=== PATIENT | female | born 1975 | race Caucasian/White ===

== ENCOUNTER 2024-06-03 10:19 | Emergency (ER) | payer OTHER, SELFPAY ==
--- NOTE | 2024-06-03 10:21 | ED.URI ---
HPI - URI/Sore Throat General Chief Complaint: Upper Respiratory Infection Stated Complaint: headache / vomiting / cough / congestion Time Seen by Provider: 06/03/24 10:21 Source: patient Mode of arrival: ambulatory Limitations: no limitations History of Present Illness HPI Narrative: Anne-Marie is a 49-year-old female patient presenting to the clinic today with complaints of cough, nasal congestion, headache, nausea, and vomiting x2 days. She denies any fever, chills, or body aches. Took ibuprofen yesterday and that helped the headache. Has vomited 5 times. History of migraine headaches. MD elicited complaint: cough, rhinorrhea, nasal congestion and other (Headache) Related Data Allergies Allergy/AdvReac Type Severity Reaction Status Date / Time No Known Allergies Allergy Verified 06/03/24 10:33 Review of Systems Review of Systems: Pertinent positives per HPI. Patient denies any fever, chills, rash, visual changes, dizziness, shortness of breath, chest pain, palpitations, diarrhea, constipation, abdominal pain, or any urinary issues. PMFSH Comments At the time of my signature, I reviewed and agree with the nursing past medical, surgical, social, and family history. There is no relevant family history pertinent to the patient complaint. Exam Narrative: General: Well-developed, well nourished, in no apparent distress Head: Normocephalic, atraumatic Eyes: Pupils equally round and reactive to light bilaterally, EOM intact, sclera and conjunctive clear, no discharge, lids normal Ears: TMs intact and clear, ear canals clear, no drainage, grossly hearing normal. Nose: Nares patent, clear nasal discharge, no inflammation, no sinus tenderness. Mouth: Oral pharynx without lesions or masses, good dentition, MMM. Neck: Supple, trachea midline, no enlargement of anterior or posterior cervical nodes, no thyroid masses or goiter palpable. Cardio: Regular rate and rhythm, s1 and s2 normal, no murmur appreciated. Resp: Clear to auscultation bilaterally, no rhonchi, rales, wheezing or rubs Course Course Emergency Course: Portions of this record may have been created with voice recognition software. Level of Care: Express Care Visit Vital Signs Vital signs: Vital signs reviewed MDM - URI/Sore Throat MDM Narrative Medical decision making narrative: At the time of visit patient is resting comfortably on the exam table. Patient appears to be nontoxic. Labs: COVID and influenza testing was performed and negative in the clinic today. Plan: I suspect patient has URI, nausea/vomiting/viral syndrome. Will send in prescription for Zofran for nausea/vomiting. Supportive measures were discussed with the patient and they voiced understanding discharge instructions and agrees to treatment plan. Return precautions reviewed Differential Diagnosis Differential diagnosis: Likely upper respiratory infection, otitis media, sinusitis, viral infection, bronchitis, influenza, pharyngitis and other (COVID) Discharge Plan Discharge Clinical Impression: Acute viral syndrome Upper respiratory infection Qualifiers: URI type: unspecified URI Qualified Code(s): J06.9 - Acute upper respiratory infection, unspecified Headache Qualifiers: Headache type: unspecified Headache chronicity pattern: acute headache Intractability: not intractable Qualified Code(s): R51.9 - Headache, unspecified Nausea & vomiting Qualifiers: Vomiting type: unspecified Qualified Code(s): R11.2 - Nausea with vomiting, unspecified Patient Disposition: Home, Self-Care Condition: Stable Instructions: Antibiotic Form, Upper Respiratory Infection (ED), Acute Nausea and Vomiting (ED), Viral Syndrome (ED) Additional Instructions: COVID and influenza testing was negative in the clinic today. No sign of bacterial infection in the clinic today Take prescription medications only as prescribed-ondansetron for nausea and vomiting May take DayQuil/NyQuil for cold/flu symptoms Increase fluids and stay well hydrated Tylenol/motrin for pain/fever Flonase and OTC antihistamines as directed Vicks vapor rub to open sinuses Sinus rinses for congestion Cepacol spray, cough drops, throat lozenges, warm tea with honey/lemon, gargle salt water to soothe throat BRAT diet for diarrhea Clear liquids x 24 hours then advance as tolerated for nausea/vomiting Go to the ED if you develop a worsening in your condition- high fever not controlled by Tylenol or Motrin, dehydration, weakness, lethargy, shortness of breath, or chest pain. Follow up with your PCP in 3-5 days if symptoms persist. Patient Language: Kinyarwanda Prescriptions: New ondansetron 4 mg tablet,disintegrating 4 mg PO Q6H PRN (Reason: nausea and vomiting) 3 Days Qty: 12 0RF Follow-up/Referrals: Stew,Belkys Mclaughlin PA-C [Primary Care Provider] - Time of Disposition: 11:07 Quality NIHSS Nursing Documentation ED NIHSS nursing documentation: reviewed/agree
[2024-06-03 10:30] VITALS: BP 124/77; PULSE 94; RESP 18; TEMP 36.6; O2SAT 100
[2024-06-03 10:59] LABS: EDCOVIDSCREEN Negative (Negative); EDINFLUASCREEN Negative (Negative); EDINFLUBSCREEN Negative (Negative)
--- OUTSIDE RECORDS SUMMARY | 2024-06-10 13:43 | XMS_ITS | Continuity of Care Document ---
Author Name [facility] Organization [facility] Care Team Providers Care Kindergarten Aide Name Role Phone [facility] Unavailable Unavailable Problems Combined list of problems from Department of Defense and Veterans Affairs facilities. It does not include entries that were removed or entered in error. Problem Status Onset Date Problem Type Date of Resolution Comments Source Macules And Papules Inactive Condition D oD fatigue Active Condition DoD allergic rhinitis Active Condition DoD visit for: screening exam lipoid disorders Inactive Condition DoD common cold Inactive Condition DoD TMJ pain Active Condition DoD anxiety Active Condition DoD Administrative Evaluation Services Active Condition DoD breast lump or mass right Active Condition DoD dermatitis Inactive Condition DoD feeling tired or poorly Active Condition DoD upper respiratory infection acute Active Condition DoD dermatophytosis nails onychomycosis Active Condition DoD Mammogram Screening For High-risk Patient Active Condition DoD visit for: screening exam for malignant neoplasm cervix Inactive Condition DoD routine gynecological exam with cervical pap smear Inactive Condition DoD acute bronchitis Inactive Condition Rev iewed options with pt. Will treat with azithromycin as below, continue sx rx as desired. f/u prn. DoD visit for: issue repeat prescription Active Condition Rx enter ed as below for citalopram 20mg daily for migraine prophylaxis. f/u prn. 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 Obtain bite guard from Dentist. If sx become more frequent or intense will consider further tx. DoD upper respiratory infection Inactive Condition continue conservative care, f/u if sx worsen or do not improve DoD Pelvic Exam (Internal) Active Condition DENIES HX ABNL PAPS. LAST THREE PAPS IN RECORD WNL. DoD visit for: screening exam malignant neoplasm breast Inactive Condition DoD Patient Counseling: Inactive Condition see above DoD breast pain Active Condition DoD limb pain Inactive Condition DoD pharyngitis Inactive Condition throat cx DoD chest pain lasting continuously for several weeks or more Active Condition doing very well . Will re-evaluate at 6 months, sooner prn DoD depression Active Condition discussed at length treatment options and medication s/ef/u in 1 month DoD Migraine, unspecified, without mention of intractable migraine without mention of status migrainosus Active Condition ALEX WATTERS Age:32 OUTPAT PRE-ACTIVE ORDERS 1 RX CITALOPRAM HBR--PO 20MG TAB~TD RF0 #30 DS30 on 05 Apr 2007@0909 {rd,denies SI /HI} ~HCP Sig.Needed~PRE-A CTIVE . . . . . . . . sGUSTIM [id number] APPOINTMENTS FOR ABBEY WATTERS TYPE/DURCLINIC/D IV PROVIDER DATE/TIME DTL CODES STATUS ======PRIMARY CARE Willie/RAYO RENE [id number]@[facility] EST/20 PENDINGArrive 15 min early BPAPS WEA DoD Allergies, Adverse Reactions, Alerts Combined list of allergies from Department of Defense and Veterans Affairs facilities. It does not include entries that were removed or entered in error. Substance Category Reaction Severity Reaction type Status Date Reported Comments Source No Known Allergies Drug allergy (disorder) active 8 [facility] NO KNOWN ALLERGIES Propensity to adverse reactions to drug Active Ambulatory Pharmacy Immunizations Combined list of available immunizations from the Department of Defense and Veterans Affairs facilities. Immunization Series Date Given Administered By Site Reaction Lot Number CVX Code Drug School Guard Status Comments Source tetanus and diphtheria toxoids, adsorbed, preservative free, for adult use (2 Lf of tetanus toxoid and 2 Lf of diphtheria toxoid) 1 2022 Unknown, Provider [id number] Sanofi Pasteur ([facility]) complet ed tetanus and diphtheri a toxoids, adsorbed, preservat lucille free, for adult use (2 Lf of tetanus toxoid and 2 Lf of diphtheri a toxoid) DoD influenza, seasonal, injectable-pf [facility]2 1P 140 Novartis Pharmaceutica ls complet ed influenza , seasonal, injectabl e-pf 05/29/13 Given Ambulat ory Pharmac y influenza, seasonal, injectable-pf 2012 1342 1P 140 Novartis Pharmaceutica ls complet ed influenza , seasonal, injectabl e-pf 05/29/13 Given Ambulat ory Pharmac y Influenza, seasonal, injectable, preservative free 5 2012 Unknown, Provider 1342 1P 140 Novartis Bobex.comtica l Maxime. (NOV) complet ed Influenza , seasonal, injectabl e, preservat lucille free DoD influenza virus vaccine, live 2011 [id number] Medimmune Inc comple t ed influenza virus vaccine, live 03/15/12 Given Ambulat ory Pharmac y influenza virus vaccine, live 2011 [id number] Medimmune Inc [facility] t ed influenza virus vaccine, live 03/15/12 Given Ambulat ory Pharmac y influenza virus vaccine, live, attenuated, for intranasal use 4 2011 Unknown, Provider [id number] [facility] (MED) complet ed influenza virus vaccine, live, attenuate d, for intranasa l use DoD tetanus, diphtheria, acellular pertu is 2011 zzRig Arm [id number] 115 sanofi pasteur complet ed tetanus, diphtheri a, acellular pertussis 11/13/11 Given Ambulat ory Pharmac y tetanus, diphtheria, acellular pertu is 2011 [id number] sanofi pasteur complet ed tetanus, diphtheri a, acellular pertussis 11/13/11 Given Ambulat ory Pharmac y tetanus toxoid, reduced diphtheria toxoid, and acellular pertu is vaccine, adsorbed 1 2011 Unknown, Provider [id number] 115 Sanofi Pasteur ([facility]) complet ed tetanus toxoid, reduced diphtheri a toxoid, and acellular pertussis vaccine, adsorbed DoD influenza virus vaccine, live 2010 [id number] 111 Medimmune Inc comple t ed influenza virus vaccine, live 04/07/11 Given Ambulat ory Pharmac y influenza virus vaccine, live, attenuated, for intranasal use 3 2010 Unknown, Provider [id number] 111 MedImmune, Inc. (MED) complet ed influenza virus vaccine, live, attenuate d, for intranasa l use DoD Novel Influenza-H1N 1-09,live virus,nasal 2008 [id number] 125 Medimmune Inc comple t ed Novel Influenza -J7F0-10, live virus,vadim al 04/01/09 Given Ambulat ory Pharmac y Novel Influenza-H1N 1-09,live virus,nasal 2008 [id number] 125 Medimmune Inc comple t ed Novel Influenza -P7S2-71, live virus,vadim al 04/01/09 Given Ambulat ory Pharmac y Novel Influenza-H1N 1-09, live virus for nasal administratio n 1 2008 Unknown, Provider [id number] 125 MedImmune, Inc. (MED) complet ed Novel Influenza -E2T3-20, live virus for nasal administr ation DoD influenza virus vaccine, live 2008 [id number] 111 Medimmune Inc comple t ed influenza virus vaccine, live 02/26/09 Given Ambulat ory Pharmac y influenza virus vaccine, live 2008 [id number] 111 Medimmune Inc comple t ed influenza virus vaccine, live 02/26/09 Given Ambulat ory Pharmac y influenza virus vaccine, live, attenuated, for intranasal use 1 2008 Unknown, Provider [id number] 111 MedImmune, Inc. (MED) complet ed influenza virus vaccine, live, attenuate d, for intranasa l use DoD influenza virus vaccine, whole virus 2002 zzLef t Arm [id number] 16 sanofi pasteur complet ed influenza virus vaccine, whole virus 05/08/03 Given Ambulat ory Pharmac y influenza virus vaccine, whole virus 2002 [id number] 16 sanofi pasteur complet ed influenza virus vaccine, whole virus 05/08/03 Given Ambulat ory Pharmac y influenza virus vaccine, whole virus 1 2002 Unknown, Provider [id number] 16 Maneofi Pasteur ([facility]) complet ed influenza virus vaccine, whole virus DoD Vital Signs Combined list of inpatient and outpatient Vital Signs from Department of Defense and Veterans Affairs, ranging from 12 months to all on record, depending upon the facility. Vital Sign Value Date Comments Source No data available for this section Ambulatory Pharmacy Encounters Combined list of: 1) Encounters from Department of Veterans Affairs facilities going back up to thelast 18 months. 2) Encounters from the Department of Defense facilities going back up to 280 months. Location Location Details Encounter Type Encounter Number Reason For Visit Attending Provider ADM Date DC Date Status Disposition Source [facility] OUTPATIENT [id number] F/U ON HEAD CT RESULTS REGGIE SANTIAGO 11/20 Released w/o Limitations [facility]) OUTPATIENT [id number] STRESS PROBLEM S-CHEST PAIN-AD VISED TO GO TO ER-[facility] DNT REGGIE SANTIAGO 07/15 Released w/o Limitations [facility] OUTPATIENT [id number] 'F/U STRESS REGGIE SANTIAGO 08/15 Released w/o Limitations [facility] OUTPATIENT [id number] SORE THROAT REGGIE SANTIAGO 10/29 Released w/o Limitations [facility]) OUTPATIENT [id number] F/U MEDS SKY BULLARD 11/14 Released w/o Limitations [facility]) OUTPATIENT [id number] JACOBO LEMUS 01/01 Released w/o Limitations [facility] TELE CONSULT [id number] SYMPTOM S RUI NORTH 06/03 [employer]) OUTPATIENT [id number] FU ON TMJ REGGIE SANTIAGO S 06/19 Released w/o Limitations [facility]) OUTPATIENT [id number] MED REFILL RUI [place]TH 11/06 Released w/o Limitations [facility] [employer] ([facility] [place] sherine Practice Non-GME FHI1) TELE CONSULT [id number] Patient needs medicat ion refill, has never had appt with pcm, New to [facility] ASYDA ABREU 02/26 [facility] [employer] ([facility] [place]F amily Practic e Non-GME FHI1) [facility] [employer] ([facility] [place]Fam sherine Practice Non-GME FHI2) OUTPATIENT [id number] cough throat pain CARLY MONTES 03/19 Released w/o Limitations [employer] ([facility] [place]F amily Practic e Non-GME FHI2) [facility] [employer] ([facility] [place]Medical Writer ecology) OUTPATIENT [id number] Annual pap FARTUN OLEARY R 03/26 Released w/o Limitations [employer] ([facility] [place]G ynecolo gy) [facility] [employer] ([facility] [place]Medical Writer ecology) OUTPATIENT [id number] annual pap JOSE MORTON 02/21 Released w/o Limitations [employer] ([facility] [place]G ynecolo gy) [facility] [employer] ([facility] [place] sherine Practice Non-GME FHI1) TELE CONSULT [id number] needs appt- VELVET Rushing 02/25 [facility] [employer] ([facility] [place]F amily Practic e Non-GME FHI1) [address] [place] [address] [employer] ([facility] [place]Fam sherine Practice Non-GME FHI1) OUTPATIENT [id number] lost half of big toenail YOANDY SMALL 02/28 Released w/o Limitations [employer] ([facility] [place]F amily Practic e Non-GME FHI1) [address] [place] [address] [facility] [employer] [facility]Fam sherine Practice Non-GME FHI1) TELE CONSULT [id number] refill iggy - VELVET Rushing 04/[address] [place] [address] [employer] [facility]F amily Practic e Non-GME FHI1) [address] [place] [address] [employer] [facility]Fam sherine Practice Non-GME FHI1) [facility]PAT[facility] [id number] [facility] 04/20 Released w/o Limitations [address] [place] [address] Group [employer] [facility]F amily Practic e Non-GME FHI1) [address] [place] [address] Group [employer] [facility]Fam sherine Practice Non-GME FHI1) OUTPATIENT [id number] POSS BRONCHI TIS [id number] # [id number] WK# YOANDY SMALL 05/18 Released w/o Limitations [address] [place], [place] [address]B [facility]F amily Practic e Non-GME FHI1) [address] [place] [address] [employer] [facility]Fam sherine Practice Non-GME FHI1) TELE CONSULT [id number] request appt - SY Torres 06/[address] [place] [address] [employer] [facility]F amily Practic e Non-GME FHI1) [address] [place] [address] [employer] [facility]Fam sherine Practice Non-GME FHI1) OUTPATIENT [id number] poss removal r YOANDY Ramos 06/09 Released w/o Limitations [address] [place] [address] [employer] [facility]F amily Practic e Non-GME FHI1) [address] [place], [place] [address]B [facility]Medical Writer ecology) OUTPATIENT [id number] annual wwe JEAN-PAUL GARZA S 07/20 Released w/o Limitations [address] [place] [address] [employer] [facility]G ynecolo gy) [address] [place] [address] [employer] [facility]co tt [facility] Fam Res Tm Red) OUTPATIENT [id number] [facility] [id number] YOANDY SMALL 09/04 Released w/o Limitations [address] [place] [address] [employer] [facility]S cott [facility] Fam Res Tm Red) [facility] Medical [facility](87 [facility]) OUTPATIENT [id number] rashes arms & legs JULIO, JUNI 12/28 Released w/o Limitations [facility](8 7 Urgent Care Clinic) [facility] Medical Group(87 Family Prac Team 1) OUTPATIENT [id number] lump on breast BRANNON RAE 01/16 Released w/o Limitations [employer] [facility] [employer](8 7 Family Prac Team 1) [facility] Medical Group(87 Family Prac Team 1) TELE CONSULT [id number] bisi franco for ultraso und / Jiménez BRANNON RAE A 01/17 [facility](8 7 Family Prac Team 1) [facility] Medical Group(87 Family Prac Team 1) OUTPATIENT [id number] NIKKO Rothman 06/11 Released w/o Limitations [facility] Medical Group(8 7 Family Prac Team 1) [facility] Medical Group(87 Family Prac Team 1) OUTPATIENT [id number] jaw pain DEVON RICHARD 08/20 Released w/o Limitations [facility] Medical Group(8 7 Family Prac Team 1) [facility] Medical Group(87 [facility] 4) OUTPATIENT [id number] cold symptom s DEVON RICHARD 05/16 Released w/o Limitations [facility] Medical Group(8 7 [facility] 4) [facility] Medical Group(87 [facility] Team Blue) OUTPATIENT [id number] migrain e medicat ion F.U JULIO, JUNI 10/16 Released w/o Limitations [facility] Medical Group(8 7 [facility] Team Blue) [facility] Medical Group(87 Contract Medical Writer) OUTPATIENT [id number] annual pap JUAN JOSÉ COSME A 04/13 Released w/o Limitations [facility] Medical Group(8 7 Contrac t Medical Writer) [facility] Group(87 [facility] Team White) TELE CONSULT [id number] Notes Entered by: Martin ALBERT 09 Oct 2011 1521 ------- ------- ------- ------- -- INEZ German 10/08 [facility] Medical Group(8 7 [facility] Team White) [place] [address]([facility] Team, [employer]) OUTPATIENT [id number] C/O MIGRAIN ES NAHOMY RAO 03/08 Released w/o Limitations [facility] [place] [address](F am Med [place] Team, [employer]) [place] [address]([facility] Med [place] Team, [employer]) OUTPATIENT [id number] F/U MEDICAT ION - SAMIR NAHOMY RAO Ramiro 05/22 Released w/o Limitations [facility] [place] [address](F am Med [place] Team, [employer]) [place] [address]([facility] Med [place] Team, [employer]) TELE CONSULT [id number] Notes Entered by: Savanna FULTON 22 Jun 2013 1331 ------- ------- ------- ------- -- Lab results SARAH FULTON 06/[address] [facility] [place] [address](F am Med [place] Team, [employer]) [place] [address]([facility] Med [place] Team, [employer]) OUTPATIENT [id number] F/U APPT NASHGarret NAHOMY RAO Ramiro 06/30 Released w/o Limitations [facility] [place] [address](F am Med [place] Team, [employer]) Procedures Combined list of: 1) Procedures from Department of Veterans Affairs facilities going back up to thelast 18 months, not all VA non-surgical procedures are included; 2) All procedures from the Department of Defense facilities. Procedure Procedure Type Code Date Perfomer Comments Sour e SCREENING PAPANICOLAOU SMEAR; OBTAINING, PREPARING AND CONVEYANCE OF CERVICAL OR VAGINAL SMEAR TO LABORATORY 04/13/20 11 [facility] SCREENING PAPANICOLAOU SMEAR; OBTAINING, PREPARING AND CONVEYANCE OF CERVICAL OR VAGINAL SMEAR TO LABORATORY 07/20/19 09 DoD AVULSION OF NAIL PLATE, PARTIAL OR COMPLETE, SIMPLE; SINGLE 06/09/19 08 [facility] SCREENING PAPANICOLAOU SMEAR; OBTAINING, PREPARING AND CONVEYANCE OF CERVICAL OR VAGINAL SMEAR TO LABORATORY 02/22/20 07 [facility] SCREENING PAPANICOLAOU SMEAR; OBTAINING, PREPARING AND CONVEYANCE OF CERVICAL OR VAGINAL SMEAR TO LABORATORY 03/26/20 [facility] CULTURE, BACTERIAL; AEROBIC ISOLATE, ADDITIONAL METHODS REQUIRED FOR DEFINITIVE IDENTIFICATION, EACH ISOLATE 03/19/20 [facility] THERAPEUTIC, PROPHYLACTIC OR DIAGNOSTIC INJECTION (SPECIFY SUBSTANCE OR DRUG); INTRAVENOUS PUSH, SINGLE OR INITIAL SUBSTANCE/DRUG 08/02/19 [facility] VISUAL FIELD EXAM,UNILAT/BI,INTE RP&REP;EXT EXM(EG,GOLDMANN VIS FLD,AT LEAST 3 ISOP PLOT&STAT DET W/IN SYBIL 30DEG/QUANT,AUTO THRSH SHERIN,OCT G-1,32/42,HUMP VIS FLD ANAL FULL THRSH 30-2,24-2, OR 3060-2) 11/12/19 04 [facility] DETERMINATION OF REFRACTIVE STATE 10/23/19 04 [facility] SCREENING PAPANICOLAOU SMEAR; OBTAINING, PREPARING AND CONVEYANCE OF CERVICAL OR VAGINAL SMEAR TO LABORATORY 10/22/19 04 [facility] REPAIR OF OTHER CURRENT OBSTETRIC LACERATION 04/22/20 [facility] URINALYSIS, BY DIP STICK OR TABLET REAGENT FOR BILIRUBIN, GLUCOSE, HEMOGLOBIN, KETONES, LEUKOCYTES, NITRITE, PH, PROTEIN, SPEC GRAVITY, UROBILINOGEN, ANY NUMBER OF CONSTITUENTS; W/O MICRO, NON-AUTO 02/08/20 [facility] URINALYSIS, BY DIP STICK OR TABLET REAGENT FOR BILIRUBIN, GLUCOSE, HEMOGLOBIN, KETONES, LEUKOCYTES, NITRITE, PH, PROTEIN, SPEC GRAVITY, UROBILINOGEN, ANY NUMBER OF CONSTITUENTS; W/O MICRO, NON-AUTO 01/25/20 [facility] URINALYSIS, BY DIP STICK OR TABLET REAGENT FOR BILIRUBIN, GLUCOSE, HEMOGLOBIN, KETONES, LEUKOCYTES, NITRITE, PH, PROTEIN, SPEC GRAVITY, UROBILINOGEN, ANY NUMBER OF CONSTITUENTS; W/O MICRO, NON-AUTO 01/04/20 [facility] URINALYSIS, BY DIP STICK OR TABLET REAGENT FOR BILIRUBIN, GLUCOSE, HEMOGLOBIN, KETONES, LEUKOCYTES, NITRITE, PH, PROTEIN, SPEC GRAVITY, UROBILINOGEN, ANY NUMBER OF CONSTITUENTS; W/O MICRO, NON-AUTO 11/30/19 [facility] URINALYSIS, BY DIP STICK OR TABLET REAGENT FOR BILIRUBIN, GLUCOSE, HEMOGLOBIN, KETONES, LEUKOCYTES, NITRITE, PH, PROTEIN, SPEC GRAVITY, UROBILINOGEN, ANY NUMBER OF CONSTITUENTS; W/O MICRO, NON-AUTO 11/02/19 [facility] SCREENING PAPANICOLAOU SMEAR; OBTAINING, PREPARING AND CONVEYANCE OF CERVICAL OR VAGINAL SMEAR TO LABORATORY 10/05/19 [facility] OPHTHALMOSCOPY, EXTENDED, WITH RETINAL DRAWING (EG, FOR RETINAL DETACHMENT, MELANOMA), WITH INTERPRETATION AND REPORT; INITIAL 04/27/20 [facility] REPAIR OF OTHER CURRENT OBSTETRIC LACERATION 04/20/20 [facility] ULTRASOUND, UTERUS, REAL TIME WITH IMAGE DOCUMENTATION, LIMITED (EG, HEART BEAT, PLACENTAL LOCATION, POSITION AND/OR QUALITATIVE AMNIOTIC FLUID VOLUME), 1 OR MORE FETUSES 04/08/20 [facility] URINALYSIS, BY DIP STICK OR TABLET REAGENT FOR BILIRUBIN, GLUCOSE, HEMOGLOBIN, KETONES, LEUKOCYTES, NITRITE, PH, PROTEIN, SPEC GRAVITY, UROBILINOGEN, ANY NUMBER OF CONSTITUENTS; W/O MICRO, NON-AUTO 03/25/20 [facility] URINALYSIS, BY DIP STICK OR TABLET REAGENT FOR BILIRUBIN, GLUCOSE, HEMOGLOBIN, KETONES, LEUKOCYTES, NITRITE, PH, PROTEIN, SPEC GRAVITY, UROBILINOGEN, ANY NUMBER OF CONSTITUENTS; W/O MICRO, NON-AUTO 03/11/20 [facility] URINALYSIS, BY DIP STICK OR TABLET REAGENT FOR BILIRUBIN, GLUCOSE, HEMOGLOBIN, KETONES, LEUKOCYTES, NITRITE, PH, PROTEIN, SPEC GRAVITY, UROBILINOGEN, ANY NUMBER OF CONSTITUENTS; W/O MICRO, NON-AUTO 02/26/20 [facility] URINALYSIS, BY DIP STICK OR TABLET REAGENT FOR BILIRUBIN, GLUCOSE, HEMOGLOBIN, KETONES, LEUKOCYTES, NITRITE, PH, PROTEIN, SPEC GRAVITY, UROBILINOGEN, ANY NUMBER OF CONSTITUENTS; W/O MICRO, NON-AUTO 02/12/20 [facility] URINALYSIS, BY DIP STICK OR TABLET REAGENT FOR BILIRUBIN, GLUCOSE, HEMOGLOBIN, KETONES, LEUKOCYTES, NITRITE, PH, PROTEIN, SPEC GRAVITY, UROBILINOGEN, ANY NUMBER OF CONSTITUENTS; W/O MICRO, NON-AUTO 12/25/19 [facility] Screening papanicolaou smear; obtaining, preparing and conveyance of cervical or vaginal smear to laboratory 04/13/20 11 JUAN JOSÉ COSME [facility] Screening papanicolaou smear; obtaining, preparing and conveyance of cervical or vaginal smear to laboratory 07/20/19 09 JEAN-PAUL GARZA [facility] Avulsion Of Nail Plate - One Avulsion Of Nail Plate - One [id number] 06/09/19 08 YOANDY SMALL [facility] Screening papanicolaou smear; obtaining, preparing and conveyance of cervical or vaginal smear to laboratory 02/22/20 07 JOSE MORTON [facility] Screening papanicolaou smear; obtaining, preparing and conveyance of cervical or vaginal smear to laboratory 03/26/20 FARTUN OLEARY [facility] Rapid Antigen Detection Streptococcus Group A Beta Hemolytic Rapid Antigen Detection Streptococcus Group A Beta Hemolytic [id number] 03/19/20 CARLY MONTES [facility] No data available for this section Ambulato ry Pharmacy Social History Combined list of available smoking, tobacco, and other social history from Department of Defense and Veterans Affairs facilities. Social History Type Response Date Comment Sour e This section is an empty social history section. DoD Assessment and Plan Combined list of future care activities from Department of Defense and Veterans Affairs facilities (e.g., assessment and plan notes, appointments, orders, and referrals). Additional future care activities may be listed in the Plan of Care section. Result Assessment and Plan Date Source Assessment and Plan No data available for this section 06/10/2024 Ambulatory Pharmacy Functional Status Combined list of recent functional and cognitive assessments recorded at Department of Defense and Veterans Affairs (VA).VA Functional Hungry Horse Measurement (FIM) Scale: 1 = Total Assistance (Subject = 0% +), 2 = Maximal Assistance (Subject = 25% +), 3 = Moderate Assistance (Subject = 50% +), 4 = Minimal Assistance (Subject = 75% +), 5 = Supervision, 6 = Modified Hungry Horse (Device), 7 = Complete Hungry Horse (Timely, Safely). Assessment Date/Time Source Assessment Type Assessment Skill Assessment Score Assessment Details No data available for this section
--- OUTSIDE RECORDS SUMMARY | 2024-06-10 13:45 | XMS_ITS | Continuity of Care Document ---
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 It does not include entries that were removed or entered in error. Substance Category Reaction Severity Reaction type Status Date Reported Comments Source No Known Allergies Drug allergy (disorder) active 8 [facility] NO KNOWN ALLERGIES Propensity to adverse reactions to drug Active Ambulatory Pharmacy Immunizations Combined list of available immunizations from the Department of Defense and Veterans Affairs facilities. Immunization Series Date Given Administered By Site Reaction Lot Number CVX Code Drug Hamper Maker Status Comments Source tetanus and diphtheria toxoids, adsorbed, preservative free, for adult use (2 Lf of tetanus toxoid and 2 Lf of diphtheria toxoid) 1 2022 Unknown, Provider [id number] Sanofi Pasteur (PMC) complet ed tetanus and diphtheri a toxoids, adsorbed, preservat lucille free, for adult use (2 Lf of tetanus toxoid and 2 Lf of diphtheri a toxoid) DoD influenza, seasonal, injectable-[facility] 1P 140 Novartis Pharmaceutica ls complet ed influenza , seasonal, injectabl e-pf 05/29/13 Given Ambulat ory Pharmac y influenza, seasonal, injectable-pf 2012 1342 1P 140 Novartis Pharmaceutica ls complet ed influenza , seasonal, injectabl e-pf 05/29/13 Given Ambulat ory Pharmac y Influenza, seasonal, injectable, preservative free 5 2012 Unknown, Provider 1342 1P 140 Novartis Ardelyxtica l Maxime. (NOV) complet ed Influenza , seasonal, injectabl e, preservat lucille free DoD influenza virus vaccine, live 2011 [id number] Medimmune Inc comple t ed influenza virus vaccine, live 03/15/12 Given Ambulat ory Pharmac y influenza virus vaccine, live 2011 [id number] Medimmune Inc [facility] t ed influenza virus vaccine, live 03/15/12 Given Ambulat ory Pharmac y influenza virus vaccine, live, attenuated, for intranasal use 4 2011 Unknown, Provider [id number] [employer] (MED) complet ed influenza virus vaccine, live, attenuate d, for intranasa l use DoD tetanus, diphtheria, acellular pertu is 2011 zzRig Arm [id number] 115 sanofi pasteur complet ed tetanus, diphtheri a, acellular pertussis 11/13/11 Given Ambulat ory Pharmac y tetanus, diphtheria, acellular pertu is 2011 [id number] 115 sanofi pasteur complet ed tetanus, diphtheri a, acellular pertussis 11/13/11 Given Ambulat ory Pharmac y tetanus toxoid, reduced diphtheria toxoid, and acellular pertu is vaccine, adsorbed 1 2011 Unknown, Provider [id number] 115 Sanofi Pasteur ([facility]) complet ed tetanus toxoid, reduced diphtheri a toxoid, and acellular pertussis vaccine, adsorbed DoD influenza virus vaccine, live 2010 [id number] 111 Medimmune Inc comple t ed influenza virus vaccine, live 04/07/11 Given Ambulat ory Pharmac y influenza virus vaccine, live, attenuated, for intranasal use 3 2010 Unknown, Provider [id number] 111 MedImmune, Inc. (MED) complet ed influenza virus vaccine, live, attenuate d, for intranasa l use DoD Novel Influenza-H1N 1-09,live virus,nasal 2008 [id number] 125 Medimmune Inc comple t ed Novel Influenza -S2W3-52, live virus,vadim al 04/01/09 Given Ambulat ory Pharmac y Novel Influenza-H1N 1-09,live virus,nasal 2008 [id number] 125 Medimmune Inc comple t ed Novel Influenza -O6S0-20, live virus,vadim al 04/01/09 Given Ambulat ory Pharmac y Novel Influenza-H1N 1-09, live virus for nasal administratio n 1 2008 Unknown, Provider [id number] 125 MedImmune, Inc. (MED) complet ed Novel Influenza -T5F9-75, live virus for nasal administr ation DoD influenza virus vaccine, live 2008 [id number] 111 Medimmune Inc comple t ed influenza virus vaccine, live 02/26/09 Given Ambulat ory Pharmac y influenza virus vaccine, live 2008 [id number] 111 Medimmune Inc comple t ed influenza virus vaccine, live 02/26/09 Given Ambulat ory Pharmac y influenza virus vaccine, live, attenuated, for intranasal use 1 2008 Unknown, Provider [id number] 111 MedImmune, Inc. (MED) complet ed influenza virus vaccine, live, attenuate d, for intranasa l use DoD influenza virus vaccine, whole virus 2002 zzLef t Arm [id number] 16 sanofi pasteur complet ed influenza virus vaccine, whole virus 05/08/03 Given Ambulat ory Pharmac y influenza virus vaccine, whole virus 2002 [id number] 16 sanofi pasteur complet ed influenza virus vaccine, whole virus 05/08/03 Given Ambulat ory Pharmac y influenza virus vaccine, whole virus 1 2002 Unknown, Provider [id number] 16 Maneofi Pasteur ([facility]) complet ed influenza virus vaccine, whole virus [...] ADM Date DC Date Status Disposition Source [facility]([place] [facility] OUTPATIENT [id number] F/U ON HEAD CT RESULTS REGGIE SANTIAGO 11/20 Released w/o Limitations [employer]([facility]) [employer]([facility]) OUTPATIENT [id number] STRESS PROBLEM S-CHEST PAIN-AD VISED TO GO TO ER-WOUL DNT REGGIE SANTIAGO 07/15 Released w/o Limitations [employer]) [employer] [facility] OUTPATIENT [id number] 'F/U STRESS REGGIE SANTIAGO 08/15 Released w/o Limitations [facility]) [employer] [facility]) OUTPATIENT [id number] SORE THROAT REGGIE SANTIAGO 10/29 Released w/o Limitations [employer] [facility]) [employer] [facility] [facility]) OUTPATIENT [id number] F/U MEDS SKY BULLARD 11/14 Released w/o Limitations [employer]) [employer](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) OUTPATIENT [id number] JACOBO LEMUS 01/01 Released w/o Limitations [employer]([facility]) [employer] [facility]) TELE CONSULT [id number] SYMPTOM S RUI NORTH 06/03 [employer]) [employer]([facility]) OUTPATIENT [id number] FU ON TMJ REGGIE SANTIAGO S 06/19 Released w/o Limitations [employer] [employer]([facility]) OUTPATIENT [id number] MED REFILL RUI NORTH 11/06 Released w/o Limitations [employer]([facility]) [employer] ([facility])([facility] sherine Practice Non-GME FHI1) TELE CONSULT [id number] Patient needs medicat ion refill, has never had appt with pcm, [facility] SAYDA ABREU 02/26 [facility] [employer] ([facility])(F amily Practic e Non-GME FHI1) [facility] [employer] ([facility])(Fam sherine Practice Non-GME FHI2) OUTPATIENT [id number] cough throat pain CARLY MONTES 03/19 Released w/o Limitations [employer] ([facility])(F amily Practic e Non-GME FHI2) [facility] [employer] ([facility])(Payroll Accounting Clerk ecology) OUTPATIENT [id number] Annual pap FARTUN OLEARY R 03/26 Released w/o Limitations [employer] ([facility])(G ynecolo gy) [facility] [employer] ([facility])(Payroll Accounting Clerk ecology) OUTPATIENT [id number] annual pap JOSE MORTON 02/21 Released w/o Limitations [employer] ([facility])(G ynecolo gy) [facility] [employer] ([facility])([facility] sherine Practice Non-GME FHI1) TELE CONSULT [id number] needs appt- VELVET Rushing 02/25 Medical [employer] ([facility])(F amily Practic e Non-GME FHI1) [address] [place] [address] [employer] ([facility])(Fam sherine Practice Non-GME FHI1) OUTPATIENT [id number] lost half of big toenail YOANDY SMALL 02/28 Released w/o Limitations [employer] ([facility])(F amily Practic e Non-GME FHI1) [address] [place] [address] Group [employer] [facility])(Fam sherine Practice Non-GME FHI1) TELE CONSULT [id number] refill iggy - VELVET Rushing 04/[address] [place] [address] [employer] [facility])(F amily Practic e Non-GME FHI1) [address] [place] [address] [employer] [facility])(Fam sherine Practice Non-GME FHI1) [facility] [id number] [facility]/20 Released w/o Limitations [address] [place] [address] Group [employer] [facility])(F amily Practic e Non-GME FHI1) [address] [place] [address] Group [employer] [facility])(Fam sherine Practice Non-GME FHI1) OUTPATIENT [id number] POSS BRONCHI TIS [id number] # [id number] WK# YOANDY SMALL 05/18 Released w/o Limitations [address] [place], [place] [address]B [facility])(F amily Practic e Non-GME FHI1) [address] [place] [address] [employer] [facility])(Fam sherine Practice Non-GME FHI1) TELE CONSULT [id number] request appt - SY Torres 06/[address] [place] [address] [employer] [facility])(F amily Practic e Non-GME FHI1) [address] [place] [address] [employer] [facility])(Fam sherine Practice Non-GME FHI1) OUTPATIENT [id number] poss removal r YOANDY Ramos 06/09 Released w/o Limitations [address] [place] [address] [employer] [facility])(F amily Practic e Non-GME FHI1) [address] [place], [place] [address]B [facility])(Payroll Accounting Clerk ecology) OUTPATIENT [id number] annual wwe JEAN-PAUL GARZA S 07/20 Released w/o Limitations [address] [place] [address] [employer] [facility])(G ynecolo gy) [address] [place] [address] [employer] [facility])(Sco tt [facility] Fam Res Tm Red) OUTPATIENT [id number] [facility] [id number] YOANDY SMALL 09/04 Released w/o Limitations [address] [place] [address] [employer] [facility])(S cott [facility] Fam Res Tm Red) [facility] Medical [facility](87 [facility]) OUTPATIENT [id number] rashes arms & legs JULIO, JUNI 12/28 Released w/o Limitations [employer] [facility] [employer](8 7 Ur[facility]) [facility](87 Family Prac Team 1) OUTPATIENT [id number] lump on breast BRANNON RAE 01/16 Released w/o Limitations [employer](8 7 Family Prac Team 1) [facility](87 Family Prac Team 1) TELE CONSULT [id number] bisi franco for ultraso und / Jiménez BRANNON RAE A 01/17 [employer](8 7 Family Prac Team 1) [facility] Group(87 Family Prac Team 1) OUTPATIENT [id number] NIKKO Rothman 06/11 Released w/o Limitations [facility] Group(8 7 Family Prac Team 1) [facility] Group(87 Family Prac Team 1) OUTPATIENT [id number] jaw pain DEVON RICHARD 08/20 Released w/o Limitations [facility] Group(8 7 Family Prac Team 1) [facility](87 [facility] 4) OUTPATIENT [id number] cold symptom s DEVON RICHARD 05/16 Released w/o Limitations [facility] Group(8 7 [facility] 4) [facility](87 [facility] Team Blue) OUTPATIENT [id number] migrain e medicat ion F.U JULIO, JUNI 10/16 Released w/o Limitations [facility] Group(8 7 [facility] Team Blue) [facility] Group(87 Contract Payroll Accounting Clerk) OUTPATIENT [id number] annual pap JUAN JOSÉ COSME A 04/13 Released w/o Limitations [facility] Group(8 7 Contrac t Payroll Accounting Clerk) [facility](87 [facility] Team White) TELE CONSULT [id number] Notes Entered by: Martin ALBERT 09 Oct 2011 1521 ------- ------- ------- ------- -- INEZ German 10/08 [facility] Medical Group(8 7 [facility] Team White) [facility] [place] [address]([facility] Team, [employer]) OUTPATIENT [id number] C/O MIGRAIN ES NAHOMY RAO 03/08 Released w/o Limitations [facility] [place] [address](F am Med Joes Team, [employer]) [facility] [place] [address]([facility] Med Joes Team, [employer]) OUTPATIENT [id number] F/U MEDICAT ION - SAMIR NAHOMY RAO Ramiro 05/22 Released w/o Limitations [facility] [place] [address](F am Med [place] Team, [employer]) [facility] [place] [address]([facility] Med [place] Team, [employer]) TELE CONSULT [id number] Notes Entered by: Savanna FULTON 22 Jun 2013 1331 ------- ------- ------- ------- -- Lab results SARAH FULTON 06/22 [facility] [place] [address](F am Med [place] Team, [employer]) [facility] [place] [address]([facility] Med [place] Team, [employer]) OUTPATIENT [id number] F/U APPT NASHGarret NAHOMY RAO Ramiro 06/30 Released w/o Limitations [facility] [place] [address](F am Med Joes Team, [employer]) Procedures Combined list of: 1) Procedures from Department of Veterans Affairs facilities going back up to thelast 18 months, not all VA non-surgical procedures are included; 2) All procedures from the Department of Defense facilities. Procedure Procedure Type Code Date Perfomer Comments Sourc e No data available for this section [facility]acy SCREENING PAPANICOLAOU SMEAR; OBTAINING, PREPARING AND CONVEYANCE OF CERVICAL OR VAGINAL SMEAR TO LABORATORY 04/13/[address] [facility] SCREENING PAPANICOLAOU SMEAR; OBTAINING, PREPARING AND CONVEYANCE OF CERVICAL OR VAGINAL SMEAR TO LABORATORY 07/20/[address] [facility] AVULSION OF NAIL PLATE, PARTIAL OR COMPLETE, SIMPLE; SINGLE 06/09/[address] [facility] SCREENING PAPANICOLAOU SMEAR; OBTAINING, PREPARING AND CONVEYANCE OF CERVICAL OR VAGINAL SMEAR TO LABORATORY 02/22/20 07 [facility] SCREENING PAPANICOLAOU SMEAR; OBTAINING, PREPARING AND CONVEYANCE OF CERVICAL OR VAGINAL SMEAR TO LABORATORY 03/26/20 [facility] CULTURE, BACTERIAL; AEROBIC ISOLATE, ADDITIONAL METHODS REQUIRED FOR DEFINITIVE IDENTIFICATION, EACH ISOLATE 03/19/20 [facility] THERAPEUTIC, PROPHYLACTIC OR DIAGNOSTIC INJECTION (SPECIFY SUBSTANCE OR DRUG); INTRAVENOUS PUSH, SINGLE OR INITIAL SUBSTANCE/DRUG 08/02/19 [facility] VISUAL FIELD EXAM,UNILAT/BI,INTE RP&REP;EXT EXM(EG,GOLDMANN VIS FLD,AT LEAST 3 ISOP PLOT&STAT DET W/IN SYBIL 30DEG/QUANT,AUTO THRSH SHERIN,OCT G-1,32/42,HUMP VIS FLD ANAL FULL THRSH 30-2,24-2, OR 3060-2) 11/12/19 [facility] DETERMINATION OF REFRACTIVE STATE 10/23/19 [facility] SCREENING PAPANICOLAOU SMEAR; OBTAINING, PREPARING AND CONVEYANCE OF CERVICAL OR VAGINAL SMEAR TO LABORATORY 10/22/19 [facility] REPAIR OF OTHER CURRENT OBSTETRIC LACERATION 04/22/20 [facility] URINALYSIS, BY DIP STICK OR TABLET REAGENT FOR BILIRUBIN, GLUCOSE, HEMOGLOBIN, KETONES, LEUKOCYTES, NITRITE, PH, PROTEIN, SPEC GRAVITY, UROBILINOGEN, ANY NUMBER OF CONSTITUENTS; W/O MICRO, NON-AUTO 02/08/20 [facility] URINALYSIS, BY DIP STICK OR TABLET REAGENT FOR BILIRUBIN, GLUCOSE, HEMOGLOBIN, KETONES, LEUKOCYTES, NITRITE, PH, PROTEIN, SPEC GRAVITY, UROBILINOGEN, ANY NUMBER OF CONSTITUENTS; W/O MICRO, NON-AUTO 01/25/20 [facility] URINALYSIS, BY DIP STICK OR TABLET REAGENT FOR BILIRUBIN, GLUCOSE, HEMOGLOBIN, KETONES, LEUKOCYTES, NITRITE, PH, PROTEIN, SPEC GRAVITY, UROBILINOGEN, ANY NUMBER OF CONSTITUENTS; W/O MICRO, NON-AUTO 01/04/20 [facility] URINALYSIS, BY DIP STICK OR TABLET REAGENT FOR BILIRUBIN, GLUCOSE, HEMOGLOBIN, KETONES, LEUKOCYTES, NITRITE, PH, PROTEIN, SPEC GRAVITY, UROBILINOGEN, ANY NUMBER OF CONSTITUENTS; W/O MICRO, NON-AUTO 11/30/19 [facility] URINALYSIS, BY DIP STICK OR TABLET REAGENT FOR BILIRUBIN, GLUCOSE, HEMOGLOBIN, KETONES, LEUKOCYTES, NITRITE, PH, PROTEIN, SPEC GRAVITY, UROBILINOGEN, ANY NUMBER OF CONSTITUENTS; W/O MICRO, NON-AUTO 11/02/19 [facility] SCREENING PAPANICOLAOU SMEAR; OBTAINING, PREPARING AND CONVEYANCE OF CERVICAL OR VAGINAL SMEAR TO LABORATORY 10/05/19 [facility] OPHTHALMOSCOPY, EXTENDED, WITH RETINAL DRAWING (EG, FOR RETINAL DETACHMENT, MELANOMA), WITH INTERPRETATION AND REPORT; INITIAL 04/27/20 [facility] REPAIR OF OTHER CURRENT OBSTETRIC LACERATION 04/20/20 [facility] ULTRASOUND, UTERUS, REAL TIME WITH IMAGE DOCUMENTATION, LIMITED (EG, HEART BEAT, PLACENTAL LOCATION, POSITION AND/OR QUALITATIVE AMNIOTIC FLUID VOLUME), 1 OR MORE FETUSES 04/08/20 [facility] URINALYSIS, BY DIP STICK OR TABLET REAGENT FOR BILIRUBIN, GLUCOSE, HEMOGLOBIN, KETONES, LEUKOCYTES, NITRITE, PH, PROTEIN, SPEC GRAVITY, UROBILINOGEN, ANY NUMBER OF CONSTITUENTS; W/O MICRO, NON-AUTO 03/25/20 [facility] URINALYSIS, BY DIP STICK OR TABLET REAGENT FOR BILIRUBIN, GLUCOSE, HEMOGLOBIN, KETONES, LEUKOCYTES, NITRITE, PH, PROTEIN, SPEC GRAVITY, UROBILINOGEN, ANY NUMBER OF CONSTITUENTS; W/O MICRO, NON-AUTO 03/11/20 [facility] URINALYSIS, BY DIP STICK OR TABLET REAGENT FOR BILIRUBIN, GLUCOSE, HEMOGLOBIN, KETONES, LEUKOCYTES, NITRITE, PH, PROTEIN, SPEC GRAVITY, UROBILINOGEN, ANY NUMBER OF CONSTITUENTS; W/O MICRO, NON-AUTO 02/26/20 [facility] URINALYSIS, BY DIP STICK OR TABLET REAGENT FOR BILIRUBIN, GLUCOSE, HEMOGLOBIN, KETONES, LEUKOCYTES, NITRITE, PH, PROTEIN, SPEC GRAVITY, UROBILINOGEN, ANY NUMBER OF CONSTITUENTS; W/O MICRO, NON-AUTO 02/12/20 [facility] URINALYSIS, BY DIP STICK OR TABLET REAGENT FOR BILIRUBIN, GLUCOSE, HEMOGLOBIN, KETONES, LEUKOCYTES, NITRITE, PH, PROTEIN, SPEC GRAVITY, UROBILINOGEN, ANY NUMBER OF CONSTITUENTS; W/O MICRO, NON-AUTO 12/25/19 [facility] Screening papanicolaou smear; obtaining, preparing and conveyance of cervical or vaginal smear to laboratory 04/13/[address] [facility] Screening papanicolaou smear; obtaining, preparing and conveyance of cervical or vaginal smear to laboratory 07/20/19 09 JEAN-PAUL GARZA [facility] Avulsion Of Nail Plate - One Avulsion Of Nail Plate - One [id number] 06/09/[address] [facility] Screening papanicolaou smear; obtaining, preparing and conveyance of cervical or vaginal smear to laboratory 02/22/[address] [facility] Screening papanicolaou smear; obtaining, preparing and conveyance of cervical or vaginal smear to laboratory 03/26/[address] [facility] Rapid Antigen Detection Streptococcus Group A Beta Hemolytic Rapid Antigen Detection Streptococcus Group A Beta Hemolytic [id number] 03/19/[address] [facility] Social History Combined list of available smoking, [...] of Defense and Veterans Affairs (VA).VA Functional [place]ner Measurement (FIM) Scale: 1 = Total Assistance (Subject = 0% +), 2 = Maximal Assistance (Subject = 25% +), 3 = Moderate Assistance (Subject = 50% +), 4 = Minimal Assistance (Subject = 75% +), 5 = Supervision, 6 = Modified Sumner (Device), 7 = Complete [place] (Timely, Safely). Assessment Date/Time Source Assessment Type Assessment Skill Assessment Score Assessment Details No data available for this section
== END 2024-06-03 11:10 | disposition home or self-care (01) ==
PROVIDERS: Emergency Provider Nurse Practitioner Family; PCP Physician Assistant
DX: B34.9 Viral infection, unspecified (principal); J06.9 Acute upper respiratory infection, unspecified; R51.9 Headache, unspecified; R11.2 Nausea with vomiting, unspecified; Z20.822 Contact with and (suspected) exposure to COVID-19
CPT/HCPCS: 87426; 87804; 99213; G0463